=== PATIENT | male | born 1980 | race Caucasian/White ===

== ENCOUNTER 2018-07-20 22:42 | Emergency (ER) | END 2018-07-21 01:30 | disposition left against medical advice (07) | LOC: ER 22:42 | DX: Z53.21 Procedure and treatment not carried out due to patient leaving prior to being seen by health care provider (principal) ==

== ENCOUNTER 2018-10-07 05:32 | Emergency (ER) | payer SELFPAY ==
[2018-10-07] MEDS ORDERED: METHYLPREDNISOLONE INJ 125 MG/2 ML SDV IV ONE (06:37)
[2018-10-07] MEDS ORDERED: FENTANYL CITRATE INJ/PF 100 MCG/2 ML AMPUL IV ONE (06:38)
[2018-10-07] MEDS ORDERED: KETOROLAC TROMETHAMINE INJ/PF 30 MG/1 ML SDV IV ONE (06:38)
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
[2018-10-07] MEDS ORDERED: HYDROCODONE/ACETAMINOPHEN 5-325 MG TABLET PO ONE (08:10)
[2018-10-07] MEDS ORDERED: HYDROCODONE/ACETAMINOPHEN 5-325 MG (6 TAB/ER DISP) PO PRN (08:41)
[2018-10-07 09:07] VITALS: BP 112/75
== END 2018-10-07 09:04 | disposition home or self-care (01) ==
LOC: ER 05:32
DX: M54.2 Cervicalgia (principal); R20.2 Paresthesia of skin; M79.602 Pain in left arm; Z98.1 Arthrodesis status
CPT/HCPCS: 99283; 96374; 96375; J3010; J2930; J1885

== ENCOUNTER 2019-07-06 12:04 | Emergency (ER) | payer SELFPAY ==
[2019-07-06] MEDS ORDERED: HYDROCODONE/ACETAMINOPHEN 5-325 MG TABLET PO ONE (13:24)
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
--- NOTE | 2019-07-06 14:13 | RADIOLOGY REPORT (SQ) ---
EXAM DESCRIPTION: SHOULDER RIGHT 2 OR MORE VIEWS COMPLETED DATE/TIME: 07/06/2019 1:56 pm REASON FOR STUDY: fall, r shoulder injury COMPARISON: None. NUMBER OF VIEWS: Three views. TECHNIQUE: Internal rotation, external rotation, and Y view images acquired of the right shoulder. LIMITATIONS: None. FINDINGS: MINERALIZATION: Normal. BONES: No acute fracture. No worrisome bone lesions. JOINTS: No dislocation. VISUALIZED LUNGS AND RIBS: No pneumothorax. No rib fracture. SOFT TISSUES: No radiopaque foreign body. OTHER: No other significant finding. IMPRESSION: NEGATIVE STUDY OF THE RIGHT SHOULDER. NO RADIOGRAPHIC EVIDENCE OF ACUTE INJURY. TECHNICAL DOCUMENTATION: JOB ID: [id number] [employer]- All Rights Reserved Reading location - IP/workstation name: [email or web address]
[2019-07-06 14:40] VITALS: BP 118/76
== END 2019-07-06 14:41 | disposition home or self-care (01) ==
LOC: ER 12:04
DX: S43.401A Unspecified sprain of right shoulder joint, initial encounter (principal); Y04.2XXA Assault by strike against or bumped into by another person, initial encounter; Y92.009 Unspecified place in unspecified non-institutional (private) residence as the place of occurrence of the external cause; F17.200 Nicotine dependence, unspecified, uncomplicated; Z98.1 Arthrodesis status
CPT/HCPCS: 99283

== ENCOUNTER 2020-03-14 05:43 | Emergency (ER) | payer SELFPAY ==
[2020-03-14 05:55] VITALS: BP 133/82
--- NOTE | 2020-03-14 06:47 | ER Document Report ---
ED Medical Screen (RME) - General Chief Complaint: Abscess Stated Complaint: ABSCESS ON ARM Time Seen by Provider: 03/14/20 06:36 Notes: Patient is a 39-year-old male who presents emergency department with a chief complaint of multiple abscesses to his left forearm. 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 He states that the knee started popping up about a week and a half ago. He was started on antibiotics. He cannot recall what antibiotics they were. States that he has some chills. Denies any history of IV drug use. Exam: Multiple abscesses noted to left forearm. I have greeted and performed a rapid initial assessment of this patient. A comprehensive ED assessment and evaluation of the patient, analysis of test results and completion of medical decision making process will be conducted by an additional ED providers. TRAVEL OUTSIDE OF THE [place] IN LAST 30 DAYS: No - Related Data Allergies/Adverse Reactions: No Known Drug Allergies Allergy (Verified 03/14/20 06:35) Past Medical History - Social History Frequency of alcohol use: None Drug Abuse: None Renal/ Medical History: Denies: Hx Peritoneal Dialysis Past Surgical History: Reports: Hx Orthopedic Surgery - c5-c7 fusion Physical Exam - Vital signs Vitals: Temp Pulse Resp BP Pulse Ox 98.0 F 77 16 133/82 H 99 03/14/20 05:53 03/14/20 05:53 03/14/20 05:53 03/14/20 05:53 03/14/20 05:53 Course - Vital Signs Vital signs: Temp Pulse Resp BP Pulse Ox 98.0 F 77 16 133/82 H 99 03/14/20 05:53 03/14/20 05:53 03/14/20 05:53 03/14/20 05:53 03/14/20 05:53
== END 2020-03-14 09:50 | disposition left against medical advice (07) ==
LOC: ER 05:43
DX: L02.414 Cutaneous abscess of left upper limb (principal); Z98.1 Arthrodesis status
CPT/HCPCS: 99281

== ENCOUNTER 2020-04-20 02:52 | Emergency (ER) | payer SELFPAY ==
--- NOTE | 2020-04-20 05:21 | ER Document Report ---
ED General Pain - General Chief Complaint: Flank Pain Stated Complaint: LLQ ABDOMINAL PAIN/LEFT SHOULDER PAIN Time Seen by Provider: 04/20/20 04:57 Notes: CHIEF COMPLAINT: Left chest cramping and skin infection HPI: 39-year-old male presenting to the emergency department for evaluation of left chest cramping that began earlier tonight. States it felt like gas pain but that resolved. Patient also states he has been on doxycycline for 14 days for skin infections on the left arm but now has developed 2 lesions at the base of the scalp and is concerned about an MRSA infection. Patient did not have any shortness of breath with the cramping sensation. Patient denies abdominal pain nausea or vomiting. Has not had fever or recent illness. ROS: See HPI - all other systems were reviewed and are otherwise negative Constitutional: no fever Eyes: no drainage, no blurred vision ENT: no runny nose, no sore throat Cardiovascular: Left chest pain Resp: no SOB, no cough GI: no vomiting, no diarrhea, no abdominal pain : no dysuria Integumentary: + rash Allergy: no hives Musculoskeletal: no extremity pain or swelling Neurological: no numbness/tingling, no weakness MEDICATIONS: I agree with the patient medications as charted by the RN. ALLERGIES: I agree with the allergies as charted by the RN. PAST MEDICAL HISTORY/PAST SURGICAL HISTORY: Reviewed and agree as charted by RN. SOCIAL HISTORY: Reviewed and agree as charted by RN. FAMILY HISTORY: No significant familial comorbid conditions directly related to patient complaint EXAM: I had to wake the patient from sound sleep for his evaluation Reviewed vital signs as charted by RN. CONSTITUTIONAL: Alert and oriented and responds appropriately to questions. Well-appearing; well-nourished HEAD: Normocephalic; atraumatic EYES: PERRL; Conjunctivae clear, sclerae non-icteric ENT: normal nose; no rhinorrhea; moist mucous membranes; pharynx without lesions noted, no uvula edema or deviation, no tonsillar hypertrophy, phonation normal NECK: Supple without meningismus; non-tender; no cervical lymphadenopathy, no masses CARD: RRR; no murmurs, no clicks, no rubs, no gallops; symmetric distal pulses RESP: Normal chest excursion without splinting or tachypnea; breath sounds clear and equal bilaterally; no wheezes, no rhonchi, no rales, pulse oximetry 98% on room air not hypoxic ABD/GI: Normal bowel sounds; non-distended; soft, non-tender, no rebound, no guarding; no palpable organomegaly or masses. No bruits BACK: The back appears normal and is non-tender to palpation, there is no CVA tenderness EXT: Normal ROM in all joints; non-tender to palpation; no cyanosis, no effusions, no edema SKIN: Normal color for age and race; warm; dry; good turgor; 2 small raised erythematous lesions at the base of the posterior scalp at the nape of the neck NEURO: Moves all extremities equally; Motor and sensory function intact PSYCH: The patient's mood and manner are appropriate. Grooming and personal hygiene are appropriate. MDM: 39-year-old male presenting for what he calls gas pains in the left chest and a cramping sensation that lasted for 1 to 2 hours then completely resolved. No radiation into the back neck or arm. Patient also concerned about 2 small lesions that are consistent with MRSA infection since he has just finished a course of doxycycline we will switch him to Bactrim. Will obtain a chest x-ray and an EKG to evaluate for mediastinal widening or abnormal changes, patient has no other known cardiac history. States there is a family history of aneurysm in his father and an uncle who had presentation in the early 50s TRAVEL OUTSIDE OF THE [place] IN LAST 30 DAYS: No - Related Data Allergies/Adverse Reactions: No Known Drug Allergies Allergy (Verified 03/14/20 06:35) Past Medical History - Social History Smoking Status: Current Every Day Smoker Chew tobacco use (# tins/day): No Frequency of alcohol use: None Drug Abuse: None Family History: Reviewed & Not Pertinent Patient has homicidal ideation: No Renal/ Medical History: Denies: Hx Peritoneal Dialysis Past Surgical History: Reports: Hx Orthopedic Surgery - c5-c7 fusion Physical Exam - Vital signs Vitals: Temp Pulse Resp BP Pulse Ox 97.8 F 82 18 131/85 H 100 04/20/20 02:57 04/20/20 02:57 04/20/20 02:57 04/20/20 02:57 04/20/20 02:57 Course - Re-evaluation Re-evalutation: 04/20/20 05:21 EKG normal sinus rhythm with a ventricular rate of 62, WV 136, QT 408, QTc 415. No other visible ectopy, normal EKG, interpreted by emergency department physicians 04/20/20 05:59 Chest x-ray on my review does not show evidence of pneumothorax or other significant abnormalities there is no mediastinal widening. I do not have suspicion for aneurysm at this time. Patient's discomfort is more likely coming from the fact that he has been on doxycycline for 2 weeks for staph infection. I will switch him to Bactrim which she has tolerated better in the past. Follow-up PCP - Vital Signs Vital signs: Temp Pulse Resp BP Pulse Ox 97.8 F 82 18 131/85 H 100 04/20/20 03:01 04/20/20 02:57 04/20/20 02:57 04/20/20 02:57 04/20/20 02:57 Discharge - Discharge Clinical Impression: Staph skin infection Acute gastritis Qualifiers: Gastritis type: other gastritis Gastritis bleeding: without bleeding Qualified Code(s): K29.00 - Acute gastritis without bleeding Condition: Stable Disposition: HOME, SELF-CARE Additional Instructions: Take the medications as prescribed. Follow-up with your primary care provider for further evaluation and treatment call for appointment Prescriptions: Sulfamethoxazole/Trimethoprim [Bactrim Ds Tablet] 2 tab PO BID #28 tablet Famotidine [Pepcid 20 mg Tablet] 20 mg PO BID #12 tablet Referrals: JULIO EAGLE MD [COMMUNITY BASED STAFF] - Follow up as needed
--- NOTE | 2020-04-20 06:09 | RADIOLOGY REPORT (SQ) ---
CLINICAL HISTORY: left chest pain COMPARISON: None. TECHNIQUE: XR CHEST 2 VIEWS 04/20/2020 5:01 AM CDT FINDINGS: Cardiac silhouette is normal in size. Lungs are clear without consolidation, atelectasis, mass or edema. There is no pleural effusion. There is no pneumothorax. There are no acute osseous findings. IMPRESSION: Clear lungs.
[2020-04-20 06:26] VITALS: BP 109/71
--- NOTE | 2020-04-20 07:00 | EKG REPORT ---
SEVERITY:- NORMAL ECG - SINUS RHYTHM : Confirmed by: Alvin Hilliard MD 20-Apr-2020 06:59:46
== END 2020-04-20 06:23 | disposition home or self-care (01) ==
LOC: ER 02:52
DX: K29.00 Acute gastritis without bleeding (principal); L08.9 Local infection of the skin and subcutaneous tissue, unspecified; B95.8 Unspecified staphylococcus as the cause of diseases classified elsewhere; R25.2 Cramp and spasm; R07.9 Chest pain, unspecified; F17.200 Nicotine dependence, unspecified, uncomplicated
CPT/HCPCS: 71046; 93005; 93010; 99284